=== PATIENT | male | born 1955 | race Caucasian/White ===

== ENCOUNTER 2019-03-21 07:40 | Outpatient (CLI) | payer BC, OTHER ==
[2019-03-21] VITALS (12 sets, daily range): BP systolic 123–150; BP diastolic 64–77
[~2019-03-21] VITALS: Ht 175.3 cm; Wt 119.3 kg
[~2019-03-21 07:40] MED LIST: ADULT LOW DOSE81 MG PO; APAP500 PO; ASPIRIN325 PO; ATIVAN0.5 MG PO; ATORVASTATIN CA40 MG PO; ATORVASTATIN CA80 MG PO; CENTRUM SILVER1 EAC4 PO; EFFIENT10 MG PO; FISH OIL 1,2001 EAC4; GLUCOPHAGE1000 MG PO; GREEN COFFEE B400 MG; IMDUR 30 MG TAB30 M1 PO; LANTUS SUBQ; LIPITOR 40 MG T40 M1 PO; LIPITOR80 MG PO; LISINOPRIL2.5 MG PO; LOPRESSOR25 PO; LOSARTAN POTASS50 MG PO; MELATONIN3 MG PO; NIASPAN ER 101000 M1 PO; TYLENOL PM PO; VICTOZA0.6 MG/0.1 PO; XANAX 0.25 MG0.25 MG PO
[2019-03-21 08:18] LABS: HEMATOCRIT 43.2 % (42.0-52.0); HEMOGLOBIN 14.9 gm/dL (14.0-18.0); MCH 29.7 pg (26.0-34.0); MCHC 34.5 g/dL (28.0-37.0); MCV 86.2 fL (80.0-100.0); RBC 5.02 mil/uL (4.50-6.00); RDW 13.8 % (10.5-14.5); WBC 10.2 thou/uL (4.0-11.0)
[2019-03-21] MEDS ORDERED: VITAMIN D3400 UNIT PO (08:18)
[2019-03-21] MEDS ORDERED: FARXIGA10 MG PO (08:19)
[2019-03-21] MEDS ORDERED: AMARYL4 MG PO (08:20)
[2019-03-21] MEDS ORDERED: TOUJEO SOL300 UNIT/1 SUBQ (08:21)
[2019-03-21] MEDS ORDERED: JANUMET 50-1,01 EACH PO (08:22)
[2019-03-21] MEDS ORDERED: FISH OIL 1,001000 M2 PO ×2 (08:23→16:13)
[2019-03-21 08:26] LABS: CALCIUM 9.4 mg/dL (8.5-10.1); POTASSIUM 4.2 mmol/L (3.5-5.1)
[2019-03-21 08:44] LABS: CHOLESTEROL 126 mg/dL (<200); HDL CHOLESTEROL 32 mg/dL (>40); LDL CHOLESTEROL 67 mg/dL (<100); TC:HDL 3.9 Ratio (Not establshd); TRIGLYCERIDE 138 mg/dL (<150); VLDL 28 mg/dL (<40)
--- NOTE | 2019-03-21 15:12 | EKG ---
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
--- NOTE | 2019-03-21 15:16 | EKG ---
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 PORTILLO : 1955 Requested By: Yosef Ventura Order Number: [id number] MD: Oumar Lieberman Measurements Intervals [place] Rate: 55 P: -22 ME: 193 QRS: 15 QRSD: 99 T: 33 QT: 434 QTc: 416 Interpretive Statements Sinus bradycardia Otherwise no significant abnormality Compared to ECG 08/14/2014 08:52:40 No significant changes Electronically Signed On 03-21-2019 15:16:23 CDT by Oumar Lieberman [email or web address] <ELECTRONICALLY SIGNED> By: Oumar Lieberman MD, [facility] 03/21/19 1516 1202 01 Oumar Lieberman MD, FACC /EPI
--- NOTE | 2019-03-21 15:55 | CATHLAB ---
[facility] [place] [address] INVASIVE PROCEDURE REPORT Name: MARCE AQUINO Room #: 211-P [facility]#: [id number] Admission: 03/21/19 Attend Phys: Yosef Ventura MD Discharge: Date of : 59 Date of Service: 03/21/19 1555 Report #: [id number] THIS REPORT FOR: //name// APPROVED REPORT Study performed: 03/21/2019 09:21:23 Patient Details Patient Status: Out-Patient Room #: The patient is a 64 year-old male Event Personnel Yosef Ventura Mill Laborer, Bryon Jeter RN RN, Ian Tran RTR Alissa Hedrick David Monitor, Nir Maxwell Monitor Procedures Performed Left Heart Cath w/or w/o Coronaries [id number] [facility] Indication Dyspnea, Positive stress test Risk Factors HypercholesterolemiaPhysical Activity, Coronary Artery DiseaseHypertension, Diabetes Procedure Narrative The Right Wrist^ was infiltrated with 1% Lidocaine subcutaneous anesthesia. A 6 FR RADIAL sheath was inserted into the Right Radial Artery^. Coronary angiography was performed using coronary diagnostic catheters. The right coronary system was accessed and visualized with a JR4 catheter. The left coronary system was accessed and visualized with a JL3.5 catheter. Left ventricular/Aortic Valve gradient assessed via catheter pullback. Closure device was deployed with a Fr L VASC BAND. The patient tolerated the procedure well and there were no complications associated with the procedure. There was no hematoma. Intraoperative Conscious Sedation Sedation start time: 9.53 Case end Time: 10.36 Fentanyl 50 mcg Versed 1 mg Fluoro Time: 12.45 minutes Dose: DAP 54400.00 cGycm2 [address] [address] INVASIVE PROCEDURE REPORT Name: MARCE AQUINO Room #: 211-P [facility]#: [id number] Admission: 03/21/19 Attend Phys: Yosef Ventura MD Discharge: Date of : 59 Date of Service: 03/21/19 1555 Report #: [id number] Contrast Type and Amount: Omnipaque 150 ml Coronary Angiography The patient's coronary anatomy is right dominant. Diagnostic Cath Left Main This is a large-caliber vessel, patent with no flow-limiting lesions. LAD There is mild diffuse disease in the proximal segment, 20%. Within the mid segment, there is moderate disease, 50%. The distal LAD tapers down to a small caliber vessel, with severe diffuse disease. This is unchanged from prior procedures. Diagonal 1 This is a moderate size caliber vessel and emanates from the mid segment of the LAD, with mild disease in the midsegment. Circumflex There is a severe stenosis just beforea previously placed stent, 90%. OM1 There is a stent in the proximal left circumflex artery, extending into the proximal segment of OM1. The stent is patent with minimal restenosis. Right Coronary This is a dominant vessel with a moderate lesion in the distal segment, 50%. R PDA There is a moderate size caliber vessel with mild disease proximally, 30%. RPLV There is a moderate size caliber vessel with mild disease proximally, 30%. Left Ventriculography Left Ventriculography was not performed. Ejection Fraction was >55% based off patient's Nuclear Cardiac Stress Test. An LVEDP was measured and there is no gradient across the outflow tract. Hemodynamics The aortic pressure is 120/68 mmHg with a mean of 56 mmHg. The left ventricular pressure is 125/14 mmHg with a mean of mmHg. The left ventricular end diastolic pressure is 20 mmHg. There was no gradient across the aortic valve upon pullback. Pullback from the left ventricle to the aorta revealed no gradient across the aortic valve. PCI Technique Lesion Patient was preloaded with Effient. Percutaneous coronary intervention was performed on the proximal circumflex artery segment. The lesion stenosis prior to intervention was 90% with KARISHMA 3 flow. A 6 FR EBU Guide Catheter was used to engage the ostium. A LUGE WIRE [facility] [address] [place] [address] INVASIVE PROCEDURE REPORT Name: MARCE AQUINO Room #: 211-P [facility].#: [id number] Admission: 03/21/19 Attend Phys: Yosef Ventura MD Discharge: Date of : 59 Date of Service: 03/21/19 1555 Report #: [id number] Interventional Guidewire was used to cross the lesion. BALLOON DILATION A Balloon catheter 2.75X6 EUPHORA was inserted and inflated up to 16.00atm for 33seconds. Additional Inflation: 8.00atm for 10seconds. STENT DEPLOYMENT A drug-eluting stent MUSA was inserted and inflated up to 14.00atm for 27seconds. POST STENT DEPLOYMENT BALLOON DILATION A Balloon catheter 3.0X12 NC EUPHORA was inserted and inflated up to 18.00atm for 22seconds. Final angiography reveals 0 % stenosis with KARISHMA 3 flow. Conclusion 1. Successful insertion of a drug-eluting stent into the proximal left circumflex artery. 2. There is a patent stent in the left circumflex/OM1 vessel. 3. There is severe diffuse disease in the distal LAD, unchanged compared to prior procedures. 4. There is moderate disease in the mid LAD and distal RCA. 5. Recommend aggressive risk factor management and dual antiplatelet therapy. <ELECTRONICALLY SIGNED> By: Yosef Ventura MD 03/21/19 1555 1555 1555 Yosef Ventura MD /INF
[2019-03-21] MEDS ORDERED: PRECOSE 50 MG50 M1 PO (16:14)
[2019-03-21] MEDS ORDERED: XALATAN2.5 ML OPHTHALMIC (16:15)
--- NOTE | 2019-03-21 17:06 | NUR ---
PT ADMITED FROM IR. ADMISSION HX AND ASSESSMENT COMPLETED. VSS. REPORT HAVING CHRONIC RIGHT SHOULDER PAIN BUT DENIED THE NEED FOR PAIN MED. RIGHT WRIST INCISION C/D/I. NO HEMATOMA NOTED. WILL CONTINUE TO MONITOR.
[2019-03-22 04:54] VITALS: BP 139/66
[2019-03-22 05:14] LABS: HEMATOCRIT 43.4 % (42.0-52.0); HEMOGLOBIN 14.7 gm/dL (14.0-18.0); MCH 29.3 pg (26.0-34.0); MCHC 33.9 g/dL (28.0-37.0); MCV 86.3 fL (80.0-100.0); RBC 5.02 mil/uL (4.50-6.00); RDW 13.8 % (10.5-14.5); WBC 12.5 thou/uL (4.0-11.0)
[2019-03-22 05:28] LABS: ALBUMIN 3.6 g/dL (3.4-5.0); CALCIUM 9.4 mg/dL (8.5-10.1); CREATININE 0.8 mg/dL (0.7-1.3); POTASSIUM 4.2 mmol/L (3.5-5.1)
--- NOTE | 2019-03-22 06:14 | NUR ---
A/O X 4.DENIES PAIN AND SOB.UP INDEPENDENTLY.MELATONIN WAS GIVEN AT BEDTIME.MONITOR SHOWS SINUS ADILIA.BEDTIME BLOOD GLUCOSE WAS 154.LANTUS WAS GIVEN.WILL CONTINUE POC.
[2019-03-22] MEDS ORDERED: EFFIENT10 MG PO (08:10)
[2019-03-22 08:38] VITALS: BP 138/68
[2019-03-22 09:40] VITALS: BP 138/68
--- NOTE | 2019-03-22 10:20 | NUR ---
ASSESSMENT CHARTED. PT ALERT AND ORIENTED. VSS. DENIED HAVING PAIN OR DISCOMFORT. RIGHT WRIST INCISION C/D/I. NO HEMATOMA NOTED. CMS INTACT. SEEN BY DR. REYNOLDS. ORDERS GIVEN TO DISCHARGE PT TO HOME. DISCHARGE INSTRUCTIONS GIVEN TO PT. PT VERBERLISED UNDERSTANDING.
--- NOTE | 2019-03-23 11:42 | EKG ---
[address] [address] ELECTROCARDIOGRAM REPORT Name: MARCE AQUINO Room #: DEP [facility]#: [id number] Admission: 03/21/19 Attend Phys: Yosef Ventura MD Discharge: 03/22/19 Date of : 59 Report #: [id number] THIS REPORT FOR: //name// [facility] Test Date: 2019-03-22 Test Time: 07:39:17 Pat Name: MARCE AQUINO Department: Room: 211 P Gender: M Client Experience Consultant: ROSSANA : 1955 Requested By: Yosef Ventura Order Number: [id number] : Joseph Fields Measurements Intervals [place] Rate: 58 P: -14 NH: 180 QRS: 13 QRSD: 99 T: 41 QT: 430 QTc: 423 Interpretive Statements Sinus rhythm Compared to ECG 03/21/2019 12:02:42 Sinus bradycardia no longer present Electronically Signed On 03-23-2019 11:42:32 CDT by Joseph Fields [email or web address] <ELECTRONICALLY SIGNED> By: Joseph Fields MD 03/23/19 1142 8 8 Joseph Fields MD /SHI
== END 2019-03-22 11:40 | disposition home or self-care (01) ==
LOC: CATH 07:40 → 2N 13:03 → CATH 13:16
PROVIDERS: Internal Medicine Cardiovascular Disease
DX: I25.110 Atherosclerotic heart disease of native coronary artery with unstable angina pectoris (principal); I11.0 Hypertensive heart disease with heart failure; I50.9 Heart failure, unspecified; E11.9 Type 2 diabetes mellitus without complications; I25.2 Old myocardial infarction; E78.00 Pure hypercholesterolemia, unspecified; E66.09 Other obesity due to excess calories; Z82.49 Family history of ischemic heart disease and other diseases of the circulatory system; Z98.890 Other specified postprocedural states; Z90.49 Acquired absence of other specified parts of digestive tract; Z79.82 Long term (current) use of aspirin; Z79.899 Other long term (current) drug therapy
CPT/HCPCS: 10081

== ENCOUNTER → 2019-12-11 | Outpatient (CLI) | payer BC, OTHER ==
[~2019-12-11] MED LIST changes: +AMARYL4 MG PO; +FARXIGA10 MG PO; +FISH OIL 1,001000 M2 PO; +JANUMET 50-1,01 EACH PO; +PRECOSE 50 MG50 M1 PO; +TOUJEO SOL300 UNIT/1 SUBQ; +VITAMIN D3400 UNIT PO; +XALATAN2.5 ML OPHTHALMIC
== END ==
LOC: SJCVCIMAG 12-04 08:11
DX: I34.0 Nonrheumatic mitral (valve) insufficiency (principal); I25.5 Ischemic cardiomyopathy; I25.10 Atherosclerotic heart disease of native coronary artery without angina pectoris; I10 Essential (primary) hypertension; E78.5 Hyperlipidemia, unspecified

== ENCOUNTER → 2019-12-26 | Outpatient (CLI) | payer BC, OTHER | LOC: LAB 12-23 10:50 | PROVIDERS: ATTEND Anesthesiology | DX: Z01.818 Encounter for other preprocedural examination (principal); Z11.59 Encounter for screening for other viral diseases ==

== ENCOUNTER → 2020-12-17 | Outpatient (CLI) | payer BC, OTHER | LOC: SJCVCIMAG 07:46 | PROVIDERS: ATTEND Internal Medicine Cardiovascular Disease | DX: I49.3 Ventricular premature depolarization (principal); I25.10 Atherosclerotic heart disease of native coronary artery without angina pectoris; Z79.82 Long term (current) use of aspirin; Z79.899 Other long term (current) drug therapy; Z88.0 Allergy status to penicillin; Z88.1 Allergy status to other antibiotic agents; E78.5 Hyperlipidemia, unspecified; I10 Essential (primary) hypertension; E66.9 Obesity, unspecified; E11.9 Type 2 diabetes mellitus without complications; Z98.61 Coronary angioplasty status ==

== ENCOUNTER 2020-12-23 07:49 | Observation (INO) | payer BC, OTHER ==
[2020-12-23] VITALS (8 sets, daily range): BP systolic 118–137; BP diastolic 59–100
[~2020-12-23] VITALS: Ht 175.3 cm; Wt 117.9 kg
[2020-12-23] MEDS ORDERED: JARDIANCE10 MG PO (09:12)
[2020-12-23] MEDS ORDERED: MULTAQ 400 MG400 MG PO ×2 (13:03→13:04)
--- NOTE | 2020-12-23 16:24 | CATHLAB ---
[facility] [address] [place] [address] INVASIVE PROCEDURE REPORT Name: MARCE AQUINO Room #: REG [facility].#: [id number] Admission: 12/23/20 Attend Phys: Yosef Ventura MD Discharge: Date of : 59 Report #: [id number] THIS REPORT FOR: cc: Raquel Pak MD, Kerry B. MD Park, Jin S. MD ~ APPROVED REPORT Study performed: 12/23/2020 11:25:05 Patient Details Patient Status: Out-Patient Room #: The patient is a 65 year-old male Event Personnel Yosef Ventura Lithographer Apprentice, Tiarra Laboy RN RN, Jessica Ross, Lily Bacon RTR Monitor Procedures Performed Art Access - R radial artery Left Heart Cath w/or w/o Coronaries [id number] [facility] Hemostasis with Hemoband 89823 Initial Mod Sed Same Phys/QHP Gr5y [id number] 98112 Mod Sed Same Phys/QHP Ea [id number] Indication Dyspnea, Positive stress test Risk Factors HypercholesterolemiaPhysical Activity, Coronary Artery DiseaseHypertension, Diabetes Previous Procedures/Diagnoses Previous PCI Procedure Narrative The Right Wrist^ was infiltrated with 1% Lidocaine subcutaneous anesthesia. A TRANSRADIAL SLENDER 6F GLIDESHEATH KIT #[id number] sheath was inserted into the Right Radial Artery^. Coronary angiography was performed using coronary diagnostic catheters. The right coronary system was accessed and visualized with a JR4 catheter. The left coronary system was accessed and visualized with a JL3.5 catheter. The left ventricle was accessed and visualized with a ANGLED PIGTAIL catheter. Closure device was deployed with a Fr VASC BAND L 27CM #[id number]. The patient tolerated the procedure well and there were no [facility] [address] [place] [address] INVASIVE PROCEDURE REPORT Name: MARCE AQUINO Room #: [facility]#: [id number] Admission: 12/23/20 Attend Phys: Yosef Ventura MD Discharge: Date of : 59 Report #: [id number] complications associated with the procedure. There was no hematoma. An intervention on the distal RCA was attempted but the lesion could not be crossed. Intraoperative Conscious Sedation Sedation start time: 11:53 Case end Time: 12:49 Fentanyl 25 mcg Versed 2.0 mg Fluoro Time: 11.26 minutes Dose: DAP 02380.60 cGycm2 2621 mGy Contrast Type and Amount: Omnipaque 140 ml Coronary Angiography The patient's coronary anatomy is right dominant. Diagnostic Cath Left Main The left main artery is a large-caliber vessel, with distal tapering. LAD The LAD is a moderate-sized caliber vessel, traverses the anterior wall and wraps around the apex. There is mild disease in the proximal segment. There is moderate diffuse disease in the midsegment. The distal LAD segment has severe diffuse disease, unchanged from prior procedures. Diagonal 1 This is a small to moderate-sized caliber vessel with moderate disease proximally, 40 to 50%. Circumflex There are overlapping stents beginning in the proximal left circumflex and extending into the proximal first OM vessel. The stents are patent with mild restenosis. OM1 This vessel divides into 2 branches, patent with no flow-limiting lesions. Right Coronary The RCA is a dominant vessel with a total occlusion in the mid/distal segment. After the obstruction, the distal branches are filled via collateral circulation. Left Ventriculography Left Ventriculography was not performed. Ejection Fraction was 50-55% based off patient's Nuclear Cardiac Stress Test. An LVEDP was measured and there is no gradient across the outflow tract. Hemodynamics The aortic pressure is 116/57 mmHg with a mean of 82 mmHg. The left ventricular pressure is 115/2 mmHg with a mean of mmHg. The left ventricular end diastolic pressure is 13 mmHg. [facility] [address] [place] [address] INVASIVE PROCEDURE REPORT Name: MARCE AQUINO Room #: REG [facility]#: [id number] Admission: 12/23/20 Attend Phys: Yosef Ventura MD Discharge: Date of : 59 Report #: [id number] PCI Technique Lesion Percutaneous coronary intervention was performed on the mid right coronary artery. The lesion stenosis prior to intervention was 100% with KARISHMA 2 flow. COMMENTS Failed PCI due to inability to cross the total occlusion with a guidewire. The patient remained hemodynamically stable. Conclusion 1. There are patent stents in the left circumflex/OM1 arteries. 2. There is moderate disease in the mid LAD and first diagonal artery. The distal LAD segment has severe diffuse disease, unchanged from prior procedures. 3. There is a total occlusion of the RCA, failed PCI due to inability to cross the lesion with a guidewire. The distal vessels are filled via collateral circulation, recommend medical therapy. 4. Recommend aggressive risk factor management. <ELECTRONICALLY SIGNED> By: Yosef Ventura MD 12/23/20 1623 1623 1623 Yosef Ventura MD /INF
--- NOTE | 2020-12-23 18:31 | NUR ---
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 ADMISSION COMPLETED. PT IS AXOX4, PLEASANT. AT THE BEDSIDE. VSS, AFEBRILE, SR ON MONITOR. PT HAD RADIAL APPROACH; SITE DEFLATED AND D/C UPON ARRIVAL TO UNIT. SITE IS C/D/I, WITH SOME SWELLING. PT BEDREST COMPLETE; UP STDBY ASST TO TOILET. POC IS TO CONTINUE TO MONITOR HR/BP. INTENT TO D/C TOMORROW PER CARDIOLOGY. LOW FALL PRECAUTIONS. NO CONCERNS AT THIS TIME.
[2020-12-24] VITALS: BP 145/58
[2020-12-24 04:02] VITALS: BP 140/73
[2020-12-24 05:00] LABS: HEMATOCRIT 43.4 % (42.0-52.0); HEMOGLOBIN 14.8 gm/dL (14.0-18.0); MCH 29.8 pg (26.0-34.0); MCHC 34.1 g/dL (28.0-37.0); MCV 87.2 fL (80.0-100.0); RBC 4.97 mil/uL (4.50-6.00); RDW 13.9 % (10.5-14.5); WBC 11.5 thou/uL (4.0-11.0)
[2020-12-24 05:16] LABS: CALCIUM 9.2 mg/dL (8.5-10.1); CREATININE 0.8 mg/dL (0.7-1.3); POTASSIUM 3.7 mmol/L (3.5-5.1)
--- NOTE | 2020-12-24 08:36 | NUR ---
assumed pt care at 0700, pt assessment performed as charted at 0835, pt voices no concerns at this time. vss. will continue to monitor and follow poc.
[2020-12-24 09:48] VITALS: BP 138/64
[2020-12-24 10:11] VITALS: BP 138/64
== END 2020-12-24 11:00 | disposition home or self-care (01) ==
LOC: CATH 07:49 → 2N 16:27
PROVIDERS: ADMIT Internal Medicine Cardiovascular Disease; ATTEND Internal Medicine Cardiovascular Disease
DX: I25.10 Atherosclerotic heart disease of native coronary artery without angina pectoris (principal); E78.00 Pure hypercholesterolemia, unspecified; E78.5 Hyperlipidemia, unspecified; E11.9 Type 2 diabetes mellitus without complications; I10 Essential (primary) hypertension; Z90.49 Acquired absence of other specified parts of digestive tract; Z98.890 Other specified postprocedural states
CPT/HCPCS: 10081